=== PATIENT | male | born 1955 | race Caucasian/White ===

== ENCOUNTER 2022-10-25 10:35 | Emergency (ER) | payer MEDICAID ==
[~2022-10-25] VITALS: Ht 182.9 cm; Wt 68.9 kg
[2022-10-25 10:55] VITALS: BP_SYST 139; PULSE 73; RESP 18; TEMP 98.1; O2SAT 99
[2022-10-25] MEDS ORDERED: KETOROLAC TROMETHAMINE 30 MG VIAL IM ONE (11:15)
[2022-10-25 11:38] LABS: BILIRUBIN,URINE NEGATIVE (NEGATIVE); BLOOD, URINE NEGATIVE (NEGATIVE); COLOR,URINE YELLOW (YELLOW); GLUCOSE,URINE 2+ (NEGATIVE); KETONES,URINE TRACE (NEGATIVE); LEUKOCYTE ESTERASE ,URINE NEGATIVE (NEGATIVE); NITRITE, URINE NEGATIVE (NEGATIVE); PH,URINE 6.5 (5.0-8.0); PROTEIN URINE TRACE (NEGATIVE); UROBILINOGEN,URINE 0.2 (0.2-1.0)
[2022-10-25 11:39] LABS: CLARITY/URINE SLIGHTLY HAZY (CLEAR)
[2022-10-25 11:44] LABS: BACTERIA,URINE RARE /HPF (None Seen); RBC,URINE NONE SEEN /HPF (0-3); WBC,URINE 0-3 /HPF (0-3)
[2022-10-25 11:47] LABS: BASOPHILS % (AUTO) 0.5 % (0.0-2.0); EOSINOPHILS # (AUTO) 0.2 K/uL (0.0-0.4); EOSINOPHILS % (AUTO) 4.4 % (0.0-4.0); HEMATOCRIT 31.1 % (36-54); HEMOGLOBIN 10.8 g/dL (14.0-18.0); LYMPHOCYTES # (AUTO) 0.8 K/uL (1.0-5.5); LYMPHOCYTES % (AUTO) 19.2 % (20.5-51.5); MEAN CORPUSCULAR HEMOGLOBIN 29 pg (27-31); MEAN CORPUSCULAR HGB CONC 35 % (32-36); MEAN CORPUSCULAR VOLUME 84 fL (79.0-98.0); MONOCYTES # (AUTO) 0.3 K/uL (0.0-1.0); MONOCYTES % (AUTO) 7.4 % (1.7-9.3); NEUTROPHILS # (AUTO) 2.8 K/uL (1.8-7.7); NEUTROPHILS % (AUTO) 68.5 % (40.0-70.0); RED BLOOD CELL COUNT(AUTO) 3.72 MIL/uL (4.2-6.2); RED CELL DISTRIBUTION WIDTH 17.3 % (9.0-15.0)
[2022-10-25 11:49] LABS: WHITE BLOOD COUNT (AUTO) 4.1 K/uL (4.8-10.8)
[2022-10-25 12:10] LABS: ALBUMIN 2.9 g/dL (3.4-4.8); CALCIUM 8.7 mg/dL (8.4-11.0); CREATININE 1.38 mg/dL (0.55-1.30); POTASSIUM 4.2 mmol/L (3.5-5.1); TOTAL BILIRUBIN 1.5 mg/dL (0.0-1.0); TOTAL PROTEIN, SERUM 7.5 g/dL (6.4-8.3)
[2022-10-25] MEDS ORDERED: TRAM50TA2 PO (12:36)
[2022-10-25 12:50] VITALS: BP_SYST 147; PULSE 74; RESP 18; TEMP 97.4; O2SAT 99
[2022-10-25 12:59] LABS: PLATELET COUNT (AUTO) 80 K/uL (130-430)
== END 2022-10-25 12:53 | disposition home or self-care (01) ==
LOC: SED 10:35
DX: M54.50 Low back pain, unspecified (principal); R10.31 Right lower quadrant pain; Z79.899 Other long term (current) drug therapy
CPT/HCPCS: 99285; 74176; 80053; 81000; 85025; 36415; 76376; 96372; J1885; J7030

== ENCOUNTER 2023-06-27 12:12 | Emergency (ER) | payer MEDICAID ==
[~2023-06-27] VITALS: Ht 175.3 cm; Wt 99.8 kg
[~2023-06-27 12:12] MED LIST: TRAM50TA2 PO
[2023-06-27 12:25] VITALS: BP_SYST 130; PULSE 67; RESP 18; TEMP 97.7; O2SAT 98
[2023-06-27 13:12] VITALS: BP_SYST 130; PULSE 67; RESP 18; TEMP 97.7; O2SAT 98
== END 2023-06-27 13:15 | disposition home or self-care (01) ==
LOC: SED 12:12
DX: S62.307A Unspecified fracture of fifth metacarpal bone, left hand, initial encounter for closed fracture (principal); Z87.442 Personal history of urinary calculi; W22.8XXA Striking against or struck by other objects, initial encounter; Y93.89 Activity, other specified; Y92.813 Airplane as the place of occurrence of the external cause; Y99.8 Other external cause status
CPT/HCPCS: 99283